=== PATIENT | male | born 1955 | race Caucasian/White ===

== ENCOUNTER 2017-07-17 15:56 | Emergency (ER) | payer MEDICARE, BC ==
[~2017-07-17] VITALS: Ht 185.4 cm; Wt 92.7 kg
[~2017-07-17 15:56] MED LIST: AMBIEN 5MG TABLE5 MG PO; COMPAZINE 110 MG/TAB PO; DEPO-TESTOS200 MG/M1 IM; MARINOL 2.5MG2.5 MG PO; NORVASC 5MG5 MG/TAB PO; PAXIL 20MG20 MG PO; PRINIVIL20 MG PO; STIVARGA PO; ULTRAM 50MG TAB50 MG PO; ZYPREXA2.5 MG PO
[2017-07-17 16:03] VITALS: TEMP 98
[2017-07-17 16:43] LABS: BASO # 0.1 (0.0-0.2); BASO % 1.2 % (0.0-2.0); GRAN # 7.1 (1.4-6.5); GRAN % 76.6 % (42.2-75.2); HEMATOCRIT 42.1 % (42.0-52.0); HEMOGLOBIN 13.8 g/dl (13.5-18.0); LYMPH # 0.8 (1.2-3.4); LYMPH % 8.4 % (20.0-51.0); MEAN CELL VOLUME 88 fl (80.0-100.0); MEAN CORPUSCULAR HEMOGLOBIN 29 pg (27.0-31.0); MEAN CORPUSCULAR HGB CONC 33 g/dl (33.0-37.0); MONO # 1.2 (0.1-0.6); MONO % 13.4 % (1.7-9.3); PLATELET COUNT 229 K/mm3 (130-400); RED BLOOD COUNT 4.76 M/mm3 (4.20-5.60); WHITE BLOOD COUNT 9.3 K/mm3 (4.8-10.8)
[2017-07-17 16:53] LABS: ADJUSTED CALCIUM 9.7 mg/dL (8.4-10.2); ALBUMIN 4.1 gm/dL (3.5-5.0); BILIRUBIN,TOTAL 0.7 mg/dL (0.0-1.0); CALCIUM 9.8 mg/dL (8.4-10.2); CREATININE, serum 0.88 mg/dL (0.66-1.25); POTASSIUM 4.4 mmol/L (3.4-5.0)
[2017-07-17] MEDS ORDERED: HCTZ 25MG TAB25 MG PO (17:03)
[2017-07-17 18:23] LABS: INR 1.1 (0.8-3.0); PROTHROMBIN TIME 12.4 SECONDS (9.7-12.8)
[2017-07-17 18:25] LABS: PARTIAL THROMBOPLASTIN TIME 30.4 SECONDS (26.0-37.0)
[2017-07-17] MEDS ORDERED: CARDIZEM CD 24240 MG PO (19:45)
[2017-07-17] MEDS ORDERED: XARELTO20 MG PO (19:45)
[2017-07-17 20:00] VITALS: BP 142/95; PULSE 97
== END 2017-07-17 20:08 | disposition home or self-care (01) ==
LOC: COL.ER 15:56
PROVIDERS: Emergency Medicine
DX: I10 Essential (primary) hypertension (principal); I48.91 Unspecified atrial fibrillation; C78.7 Secondary malignant neoplasm of liver and intrahepatic bile duct; C26.0 Malignant neoplasm of intestinal tract, part unspecified; F32.9 Major depressive disorder, single episode, unspecified

== ENCOUNTER 2017-11-27 13:07 | Emergency (ER) | payer MEDICARE, BC ==
[~2017-11-27] VITALS: Ht 188 cm; Wt 88.6 kg
[~2017-11-27 13:07] MED LIST changes: +CARDIZEM CD 24240 MG PO; +HCTZ 25MG TAB25 MG PO; +XARELTO20 MG PO
[2017-11-27 13:43] LABS: MEAN CELL VOLUME 103 fl (80.0-100.0); MEAN CORPUSCULAR HGB CONC 33 g/dl (33.0-37.0); MEAN PLATELET VOLUME 9.3 fl (7.4-10.4); PLATELET COUNT 258 K/mm3 (130-400); RED BLOOD COUNT 3.26 M/mm3 (4.20-5.60); REDCELL DISTRIBUTION WIDTH-CV 17.9 % (11.5-14.5)
[2017-11-27 13:44] LABS: HEMATOCRIT 33.6 % (42.0-52.0); HEMOGLOBIN 11.1 g/dl (13.5-18.0); MEAN CORPUSCULAR HEMOGLOBIN 34 pg (27.0-31.0)
[2017-11-27 13:51] LABS: INR 1.5 (0.8-3.0); PROTHROMBIN TIME 17.3 SECONDS (9.7-12.8)
[2017-11-27 14:00] LABS: POTASSIUM 4.3 mmol/L (3.4-5.0)
[2017-11-27 14:03] LABS: BILIRUBIN,TOTAL 1.2 mg/dL (0.0-1.0); C-REACTIVE PROTEIN 4.1 mg/dL (0.0-0.9); CALCIUM 11.3 mg/dL (8.4-10.2); CREATININE, serum 1.14 mg/dL (0.66-1.25); TOTAL PROTEIN 7.2 gm/dL (6.4-8.2)
[2017-11-27 14:05] LABS: ANISOCYTOSIS 1+; BAND 13 % (0-10); LYMPHOCYTE 3 % (20.0-51.0); NEUTROPHILS 80 % (42.0-75.2); PLATELET ESTIMATE NORMAL (NORMAL)
[2017-11-27 14:31] LABS: COLLECTION METHOD CLEAN CATCH
[2017-11-27 14:44] LABS: HYALINE CAST >12 /lpf; MUCOUS Present /lpf; PH 7 (5-8); SQUAMOUS EPITHELIAL 0-2 /hpf; URINE APPEARANCE Hazy; URINE BACTERIA None Seen /hpf; URINE BILIRUBIN Negative (NEGATIVE); URINE BLOOD Negative (NEGATIVE); URINE COLOR Amber; URINE GLUCOSE Negative (NEGATIVE); URINE KETONE Negative (NEGATIVE); URINE LEUKOCYTE ESTERASE Negative (NEGATIVE); URINE NITRATE Negative (NEGATIVE); URINE PROTEIN(semi-quant) 2+ (NEGATIVE); URINE UROBILINOGEN >=4.0 mg/dL (NEGATIVE)
[2017-11-27 15:13] LABS: ARTERIAL BLD GAS O2 SATURATION 97.7 % (92-100); ARTERIAL BLD GAS TCO2 CT 21.9; ARTERIAL BLOOD GAS BASE EXCESS 2.6 (-2-2); ARTERIAL BLOOD GAS HCO3 21.4 meq/L (22-26); ARTERIAL BLOOD GAS PCO2 19.2 mmHg (35-45); ARTERIAL BLOOD GAS PO2 96.8 mmHg (80-100); ARTERIAL BLOOD GAS pH 7.66 (7.35-7.45)
[2017-11-27 16:25] LABS: ARTERIAL BLD GAS O2 SATURATION 97.7 % (92-100); ARTERIAL BLD GAS TCO2 CT 21.9; ARTERIAL BLOOD GAS BASE EXCESS 2.6 (-2-2); ARTERIAL BLOOD GAS HCO3 21.4 meq/L (22-26); ARTERIAL BLOOD GAS PO2 96.8 mmHg (80-100)
[2017-11-27 16:30] VITALS: BP 116/89; PULSE 105; TEMP 99.4
[2017-11-27 17:33] LABS: ARTERIAL BLOOD GAS PCO2 19.2 mmHg (35-45); ARTERIAL BLOOD GAS pH 7.66 (7.35-7.45)
== END 2017-11-27 16:37 | disposition short-term general hospital (02) ==
LOC: COL.ER 13:07
PROVIDERS: Family Medicine
DX: I10 Essential (primary) hypertension (principal); A41.9 Sepsis, unspecified organism; C22.8 Malignant neoplasm of liver, primary, unspecified as to type
CPT/HCPCS: C1751; J2185; J2405; J2550; J3370; J7030; J7050